=== PATIENT | female | born 2000 | race Caucasian/White ===

== ENCOUNTER 2021-08-22 16:19 | Emergency (ER) | payer MEDICAID ==
[2021-08-22] MEDS: Ondansetron 4 MG/2 ML SDV IVPUSH ONE (16:42)
[2021-08-22] MEDS: Sodium Chloride 0.9% 1,000 ML IV ONE ×2 (16:43→17:38)
[2021-08-22 16:59] LABS: CHLORIDE,CL 103 mEq/L (98-106); SODIUM,NA 140 mEq/L (136-145)
[2021-08-22] MEDS: Take Home: Ondansetron 4 MG Tab.DIS, 2 Tab Pack PO ONE (17:38)
== END 2021-08-22 18:35 | disposition home or self-care (01) ==
LOC: CC.ED 16:19
DX: R11.2 Nausea with vomiting, unspecified (principal); R19.7 Diarrhea, unspecified; E86.0 Dehydration; R00.0 Tachycardia, unspecified; R05.9 Cough, unspecified; Z72.0 Tobacco use
CPT/HCPCS: 36415; 71046; 80053; 81001; 82150; 83690; 85025; 96374; 99284; 99284-25; A9270-GY; J2405; J7030

== ENCOUNTER 2021-11-08 11:04 | Emergency (ER) | payer MEDICAID | END 2021-11-08 12:16 | disposition home or self-care (01) | LOC: CC.ED 11:04 → SUPCPDRO 11:04 → CC.ED 12:16 | DX: S93.401A Sprain of unspecified ligament of right ankle, initial encounter (principal); F17.210 Nicotine dependence, cigarettes, uncomplicated; Z79.899 Other long term (current) drug therapy; X50.1XXA Overexertion from prolonged static or awkward postures, initial encounter; Y99.0 Civilian activity done for income or pay | CPT/HCPCS: 73610-RT; 73630-RT; 99283; 99283-25 ==

== ENCOUNTER 2022-02-10 20:55 | Emergency (ER) | payer MEDICAID ==
[2022-02-10 21:38] LABS: AMPHETAMINES,URINE NEGATIVE (NEGATIVE); BARBITURATES,URINE NEGATIVE (NEGATIVE); BENZODIAZEPINE,URINE NEGATIVE (NEGATIVE); MDMA (ECSTASY), URINE NEGATIVE (NEGATIVE); METHADONE,URINE NEGATIVE (NEGATIVE); METHAMPHETAMINES,URINE NEGATIVE (NEGATIVE); OPIATES,URINE NEGATIVE (NEGATIVE); OXYCODONE,URINE NEGATIVE (NEGATIVE); PHENCYCLIDINE,URINE NEGATIVE (NEGATIVE); TCA,URINE NEGATIVE (NEGATIVE)
[2022-02-10 21:45] LABS: CHLORIDE,CL 103 mEq/L (98-106); SODIUM,NA 139 mEq/L (136-145)
[2022-02-10 21:46] LABS: ESTIMATED GFR 94 mL/min (>=60)
[2022-02-10] MEDS: levETIRAcetam 500 MG Tab PO ONE (21:55)
[2022-02-11] MEDS ORDERED: levETIRAcetam 500 MG Tab PO ONE (21:48)
== END 2022-02-10 22:06 | disposition home or self-care (01) ==
LOC: CC.ED 20:55
DX: G40.909 Epilepsy, unspecified, not intractable, without status epilepticus (principal)
CPT/HCPCS: 80053; 80177; 80305-QW; 80307; 81003; 81025; 83735; 85025; 99284; A9270-GY